=== PATIENT | male | born 1990 | race Caucasian/White ===

== ENCOUNTER 2019-06-13 08:16 | Emergency (ER) | payer OTHER ==
[~2019-06-13] VITALS: Ht 162.6 cm; Wt 119.5 kg
--- NOTE | 2019-06-13 08:39 | NUR ---
PT WITH C/O "I HAVEN'T BEEN ABLE TO BREATHE, MY ASTHMA HAS BEEN ACTING UP" PT NORMALLY USES DULARA QD BUT STATES HE HAS BEEN OUT OF THE RX FOR 3-4MONTHS. LUNG SOUND CLR T/O AND NO WHEEZING NOTED. POC DISCUSSED AND QUESTIONS ANSWERED. PT AMBULATORY TO RADIOLOGY WITH TECH ESCORT.
[2019-06-13] MEDS ORDERED: DEXAMETHASONE 4 MG TABLET ONE (08:43)
[2019-06-13] MEDS ORDERED: ALBUTEROL SULFATE 2.5 MG/3 ML ONE (08:49)
--- NOTE | 2019-06-13 08:55 | NUR ---
PT MED NOTED. RT AT BEDSIDE, NPPB TREATMENT IN PROGRESS.
[2019-06-13] MEDS ORDERED: DEXAMETHASONE 4 MG TABLET PO ONE (09:00)
[2019-06-13] MEDS ORDERED: ALBUTEROL SULFATE 2.5 MG/3 ML NPPB ONE (09:00)
[2019-06-13 09:10] VITALS: BP 121/78
--- NOTE | 2019-06-13 09:11 | NUR ---
PHILLIP, NATHANAEL RPT TO [facility]ANNER.
--- NOTE | 2019-06-13 09:37 | NUR ---
TASK RN: Patient/Caregiver given discharge instructions and they have confirmed that they understand the instructions. Patient ambulatory with steady gait.
== END 2019-06-13 09:38 | disposition home or self-care (01) ==
LOC: ED 09:05
DX: J45.31 Mild persistent asthma with (acute) exacerbation (principal)
CPT/HCPCS: 71046; 93005; 94640; 99283; J7613

== ENCOUNTER 2019-07-13 01:03 | Emergency (ER) | payer OTHER ==
[~2019-07-13] VITALS: Ht 162.6 cm; Wt 122.3 kg
--- NOTE | 2019-07-13 01:15 | NUR ---
THIS IS A 29 YO MALE COMING IN FOR "I'VE BEEN QUARANTINING AT HOME BECAUSE MY GIRLFRIEND IS POSITIVE, AND I STARTED GETTING WHEEZY AND SHORT OF BREATH". PATIENT HAS HX OF ASTHMA, USES INHALER AT HOME, NO RELIEF AT HOME. DENIES FEVERS/N/V/D/BODY ACHES OR CHILLS. A&OX4. INSPIRATORY AND EXPIRATORY WHEEZES AUSCULTATED THROUGHOUT. SPO2 AT 96% ON RA. AIRWAY PATENT. SPO2 AND BP MONITORING IN PLACE. EKG DONE.
[2019-07-13] MEDS ORDERED: ALBU18HF INH (01:21)
[2019-07-13] MEDS ORDERED: ALBUTEROL/IPRATROPIUM 2.5MG/0.5MG, 3 ML ONE ×3 (01:28→02:16)
[2019-07-13] MEDS ORDERED: ALBUTEROL/IPRATROPIUM 2.5MG/0.5MG, 3 ML NPPB ONE (01:30)
--- NOTE | 2019-07-13 01:38 | NUR ---
PATIENT MEDICATED PER EMAR, TOLERATED WELL. BREATHING TX FINISHED
--- NOTE | 2019-07-13 01:49 | NUR ---
INSPIRATORY AND EXPIRATORY WHEEZES AUSCULTATED AFTER BREATHING TREATMENT. PA NOTIFIED. Addendum: 07/13/19 at 0207 by ERIN MORRIS BARBOUR TO CHART THIS NOTE. MIYA Scott RN CHARTED THIS NOTE
[2019-07-13] MEDS ORDERED: ALBUTEROL/IPRATROPIUM 2.5MG/0.5MG, 3 ML NPPB PRN (02:00)
--- NOTE | 2019-07-13 02:00 | NUR ---
CHARTED PREVIOUS NOTE UNDER WRONG USER. INSPIRATORY AND EXPIRATORY WHEEZES AUSCULTATED AFTER BREATHING TREATMENT. PA NOTIFIED.
[2019-07-13 02:04] VITALS: BP 117/58
--- NOTE | 2019-07-13 02:09 | NUR ---
SECOND BREATHING TX COMPLETED. INSPIRATORY AND EXPIRATORY WHEEZES AUSCULTATED IN BILATERAL BASES, NOT PROMINENT WHEN FIRST ARRIVED. UPPER LUNG SOUNDS CLEAR.
--- NOTE | 2019-07-13 02:16 | NUR ---
PATIENT STATES IT IS MUCH EASIER TO BREATHE, DISCUSSED WITH MARQUISE BOSS. WILL ADMINISTER THIRD BREATHING TX
--- NOTE | 2019-07-13 02:41 | NUR ---
THIRD NEB TX GIVEN PER PA ORDERS. PATIENT STILL HAS BILAT LOWER LOB WHEEZES. TALKED WITH MARQUISE BOSS. ERP TO EVAL IN ROOM THEN DISCUSS OPTIONS
--- NOTE | 2019-07-13 02:58 | NUR ---
Patient given discharge instructions and they have confirmed that they understand the instructions. Patient ambulatory with steady gait.
== END 2019-07-13 03:21 | disposition home or self-care (01) ==
LOC: ED 01:35
DX: J45.21 Mild intermittent asthma with (acute) exacerbation (principal); R06.00 Dyspnea, unspecified; R94.31 Abnormal electrocardiogram [ECG] [EKG]; R06.02 Shortness of breath
CPT/HCPCS: 93005; 94640; 99284; J7512